=== PATIENT | male | born 1930 | race Caucasian/White ===

== ENCOUNTER 2016-09-13 18:24 | Emergency (ER) | payer MEDICARE, OTHER ==
[~2016-09-13] VITALS: Ht 180.3 cm; Wt 115.3 kg
[~2016-09-13 18:24] MED LIST: ASPCH81X PO; FURO40TA3 PO; GABA300C19 PO; NTRGSL/4 UT; POLY335019 PO; SIMV40TA4 PO; TERA5CAP PO
[2016-09-13 18:43] VITALS: TEMP 36.7; Ht 180.3 cm; Wt 115.3 kg
[2016-09-13] MEDS ORDERED: XYLOCAINE 1%/SOD BICARB 20 ML VIAL INFIL ONE (19:15)
--- NOTE | 2016-09-13 20:15 | EMERGENCY ROOM VISIT NOTE ---
ED Visit Note First contact with patient: 19:07 This Patient was discussed with the physician Wet Primer Powder Blender, Dony Shine PA-C. The pertinent historical and physical exam findings were confirmed. I agree with the studies ordered and with the interpretations of these studies. I agree with the disposition and care plan.
[2016-09-13] MEDS ORDERED: FRS/40 PO (20:37)
[2016-09-13 20:40] VITALS: BP 156/86; PULSE 57; O2SAT 94
--- NOTE | 2016-09-14 00:44 | EMERGENCY ROOM VISIT NOTE ---
History First contact with patient: 19:07 Chief Complaint: LACERATION/CUT (SUT/DERMABOND) Stated Complaint: CUT RIGHT THUMB Nursing Triage Summary: Patient states "I cut my right thumb on a meat smoker." History of Present Illness The patient is a 85 year old male who presents to the Emergency Room with complaints of a laceration to his right thumb. He was cutting potatoes on an electric meat smoker when he cut his finger. He reports significant bleeding from the finger. He denies any pain. Tetanus immunization is up-to-date. The patient is [id number]. Review of Systems 6 system review was performed and was negative except for pertinent positives and negatives as indicated in history of present illness Past Medical/Surgical History Medical Problems: (1) Benign hypertension (2) Eye surgery (3) Myocardial infarction Family History Unremarkable Social History Smoking Status: Former Smoker Alcohol Use: none Marital Status: Housing Status: lives with family Occupation Status: retired Current/Historical Medications Scheduled Aspirin (Aspirin Chewable), 81 MG PO HS Furosemide (Lasix), 40 MG PO DAILY Gabapentin (Neurontin), 300 MG PO HS Nitroglycerin (Nitrostat), 0.4 MG UT PRN Polyethylene Glycol 3350 (Miralax), 17 GM PO HS Simvastatin (Zocor), 40 MG PO QPM Terazosin (Hytrin), 5 MG PO QPM Allergies Coded Allergies: No Known Allergies (Verified , 09/13/16) Physical Exam Vital Signs Date Time Temp Pulse Resp B/P Pulse Ox O2 Delivery O2 Flow Rate FiO2 09/13/16 20:40 57 17 156/86 94 09/13/16 18:43 36.7 91 18 167/79 98 Room Air Pain Rating (0-10): 0 Physical Exam CONSTITUTIONAL: Healthy and well nourished. Alert and oriented X 3 with positive affect. HEENT: Normocephalic, atraumatic. Pupils equal, round and reactive. NECK: Full active range of motion without discomfort. MUSCULOSKELETAL: Examination of the right thumb shows a 3 cm digital pad laceration with mild bleeding. The laceration does not cross PIP joint. Nail plate is not involved. Capillary refill is less than 2 seconds. INTEGUMENTARY: No rash or other significant dermatologic conditions noted. NEUROLOGIC: Right thumb is sensory intact. Medical Decision & Procedures Procedure Laceration repair was performed under digital block anesthesia after receiving verbal consent from the patient. Using buffered 1% lidocaine without epinephrine, good digital block anesthesia was administered. The wound was then peripherally cleansed with iodine, then irrigated with normal saline. The wound was then approximated using 5-0 nylon simple interrupted sutures. Bacitracin dressing was applied. ED Course Patient history and physical exam were performed. Nurse's notes were reviewed. Laceration repair was performed under digital block anesthesia. The patient was provided additional verbal and written wound care instructions. Ice for swelling. Tylenol as needed for pain. The patient refused any prescription analgesics. He was instructed to follow-up with his PCP for suture removal in 12-14 days, sooner with any signs of infection or other concerns. The patient was happy with plan of care, and denied any pain at the conclusion of my exam. The patient was also seen and examined by Dr. Garces, ED attending physician, who agrees with workup and plan of care. Medical Decision Impression Primary Impression: Laceration of right thumb Departure Information Dispostion Home / Self-Care Condition GOOD Forms HOME CARE DOCUMENTATION FORM, IMPORTANT VISIT INFORMATION Patient Instructions My [facility] Additional Instructions Keep wound clean and dry. Do not allow any crusting or dried blood to accumulate on sutures. If this occurs, use a 1:1 solution of hydrogen peroxide/ water on a Q-tip to clean the wound. Use an antibiotic ointment for 3-4 days, then let wound dry. Suture removal in 12-14 days. Return sooner for any signs of infection (increasing redness, swelling, drainage). Ice and elevate for swelling and pain. Tylenol 1000 mg every 6 hrs as needed for pain. Problem Qualifiers Primary Impression: Laceration of right thumb Encounter type: initial encounter Qualified Codes: S61.011A - Laceration without foreign body of right thumb without damage to nail, initial encounter
== END 2016-09-13 20:52 | disposition home or self-care (01) ==
LOC: C.EDB 18:45 → C.EDD 20:52
DX: S61.011A Laceration without foreign body of right thumb without damage to nail, initial encounter (principal); W45.8XXA Other foreign body or object entering through skin, initial encounter; I10 Essential (primary) hypertension; I25.2 Old myocardial infarction; Z87.891 Personal history of nicotine dependence; Z79.82 Long term (current) use of aspirin; Z79.899 Other long term (current) drug therapy

== ENCOUNTER 2019-08-31 10:19 | Inpatient (IN) ==
--- OUTSIDE RECORDS SUMMARY | 2019-08-31 10:21 | External Medical Summary | Continuity of Care Document ---
:1930 Author Name Alexsander Galarza Address Unavailable Unavailable , Care Team Providers Name Role Phone NonMNPG M.D. Unavailable [email or web address] PCP, NO Unavailable Unavailable Problems Active medical history not documented Allergies and Adverse Reactions Allergy history not documented Medications Medications not documented Procedures Procedures not documented Immunizations Immunizations not documented Plan of Treatment Planned Observations Planned Goals not documented Results No Known Results Results not documented
--- OUTSIDE RECORDS SUMMARY | 2019-08-31 10:22 | External Medical Summary | Continuity of Care Document ---
:1930 Author Name Alexsander Galarza Address Unavailable Unavailable , Care Team Providers Name Role Phone NonMNPG M.D. Unavailable [email or web address] PCP, NO Unavailable Unavailable Problems Active medical history not documented Allergies and Adverse Reactions Allergy history not documented Medications Medications not documented Procedures Procedures not documented Immunizations Immunizations not documented Plan of Treatment Planned Observations Planned Goals not documented Results No Known Results Results not documented
[2019-08-31] MEDS ORDERED: METOPROLOL TARTRATE 1 MG/ML VIAL IV STA (10:46)
[2019-08-31] MEDS ORDERED: dilTIAZem HCl 5 MG/ML 5 ML VIAL IV STA (10:46)
[2019-08-31 10:54] LABS: Basophils # (auto) 0.02 K/uL (0-0.2); Basophils % (auto) 0.3 %; Eosinophils # (auto) 0.04 K/uL (0-0.5); Eosinophils % (auto) 0.7 %; Hematocrit (blood only) 43.5 % (42-52); Hemoglobin 13.9 g/dL (14.0-18.0); Immature Granulocytes # (auto) 0.01 K/uL (0.00-0.02); Immature Granulocytes % (auto) 0.2 %; Lymphocytes # (auto) 0.99 K/uL (1.2-3.4); Lymphocytes % (auto) 16.9 %; Mean Corpuscular Hemoglobin 29.6 pg (25-34); Mean Corpuscular Volume 92.8 fL (80-100); Mean Platelet Volume 11.1 fL (7.4-10.4); Monocytes # (auto) 0.48 K/uL (0.11-0.59); Monocytes % (auto) 8.2 %; Neutrophils # (auto) 4.32 K/uL (1.4-6.5); Neutrophils % (auto) 73.7 %; Platelet Count 183 K/uL (130-400); RDW Coefficient of Variation 14.7 % (11.5-14.5); RDW Standard Deviation 49.6 fL (36.4-46.3); Red Blood Count 4.69 M/uL (4.7-6.1); White Blood Count 5.86 K/uL (4.8-10.8)
[2019-08-31] MEDS ORDERED: dilTIAZem HCL 125 MG in DEXTROSE 5% 100 ML IV SCH (11:00)
[2019-08-31] MEDS ORDERED: DILTIAZEM HCL IV ONE (11:00)
--- NOTE | 2019-08-31 11:13 | XRay Report ---
XR chest 1V portable CLINICAL HISTORY: Chest Pain COMPARISON STUDY: Chest radiograph September 24, 2012. FINDINGS: There is no pneumothorax. There may be a trace right pleural effusion. There is pulmonary v ascular congestion without overt pulmonary edema. Mild bibasilar opacities favor atelectasis. Calcifi ed right midlung nodule is noted. Cardiomegaly is unchanged. Mediastinal contours are stable. IMPRESSION: 1. Pulmonary vascular congestion. Suspected trace right pleural effusion. 2. Mild bibasilar opacities which favor atelectasis. ACT 112: Negative or not required by law. Electronically signed by: Urbano Carias M.D. 08/31/2019 11:11 AM
[2019-08-31 11:14] LABS: BUN Creatinine Ratio 15.6 (10-20); Calcium 9.1 mg/dl (8.5-10.1); Est GFR (African American) 57.1; Est GFR (Non-African American) 49.3; Potassium 3.8 mmol/L (3.5-5.1)
[2019-08-31 11:22] LABS: Troponin I 0.112 ng/ml (0-0.045)
[2019-08-31 11:43] LABS: INR 1.1 (0.9-1.1); Partial Thromboplastin Time 26.8 Seconds (21.0-31.0); Prothrombin Time 11.4 Seconds (9.0-12.0)
[2019-08-31] MEDS ORDERED: Heparin IV Low Dose WITH Bolus STA (11:44)
[2019-08-31 11:45] LABS: D Dimer 4650 ug/L FEU (0-500)
[2019-08-31] MEDS ORDERED: OPTIRAY 320 125ml IV PRN (12:00)
[2019-08-31] MEDS ORDERED: Heparin BOLUS **ED Use Only IV STA (12:22)
--- NOTE | 2019-08-31 12:26 | CT Scan Report ---
CT ANGIOGRAPHY OF THE CHEST, PULMONARY EMBOLUS PROTOCOL CLINICAL HISTORY: Shortness of breath. Evaluate for pulmonary embolus. COMPARISON STUDY: Chest CT February 09, 2011. Chest radiograph performed earlier today. TECHNIQUE: Following IV administration of 120 mL of Optiray-320, helical axial images of the chest we re obtained utilizing the pulmonary embolus protocol. Maximal intensity projections and sagittal and coronal reformats were viewed on an independent 3D workstation. IV contrast was administered withou t complication. Automated exposure control was utilized for the study. A dose lowering technique wa s utilized adhering to the principles of ALARA. CT DOSE: 595.76 mGy.cm FINDINGS: No central pulmonary emboli are identified. The remainder of the pulmonary arteries are sprague boptimally assessed given suboptimal opacification and respiratory motion artifact. The heart is mode rately enlarged. There is moderate dilatation of the main pulmonary artery. Dilatation of the ascendi ng aorta, measuring 4.4 cm, is minimally increased since CT of February 19, 2011. There is no pericardial effusion. Small right and trace left pleural effusions are noted. There is suspected mild pulmonary edema. There is evidence for previous granulomas process. Subpleural opacities favor atelectasis. Radha gs are suboptimally assessed given respiratory motion. There is no thoracic lymphadenopathy. No suspi cious osseous lesions are noted. There may be trace perihepatic ascites. IMPRESSION: 1. No central pulmonary emboli. Remainder of pulmonary arteries suboptimally assessed given suboptima l opacification and respiratory motion. If persistent clinical suspicion for pulmonary embolus, a rep eat chest CT might be considered. 2. Small right and trace left pleural fusions with suspected mild pulmonary edema. 3. Moderate cardiomegaly. Moderate aortic valvular and coronary artery calcification. Mild dilatation of the ascending aorta, measuring 4.4 cm. 4. Dilatation of the main pulmonary artery which suggests pulmonary arterial hypertension. ACT 112: Negative or not required by law. Electronically signed by: Urbano Carias M.D. 08/31/2019 12:25 PM
[2019-08-31] MEDS: HEPARIN SODIUM/DEXTROSE 25,000 UNITS/500 ML BAG IV SCH (12:34)
--- NOTE | 2019-08-31 12:34 | History & Physical Report ---
Date of Service August 31, 2019 Assessment & Plan (1) Atrial fibrillation with RVR: Appears to be new onset. Rate improved when seen in ED after receiving metoprolol - Continue to monitor on telemetry - Start metroprolol tartrate 12.5 mg BID until seen by cardiology - may need higher dose - Consult cardiology - Repeat ECHO ordered to follow-up on aortic stenosis - Trend troponin - Low-dose heparin started in ED - will need to determine if ongoing anticoagulation appropriate in view of advanced age, pt lives alone (risk vs. benefit) (2) Aortic stenosis: - Repeat ECHO as discussed (3) ASCVD (arteriosclerotic cardiovascular disease): - Trend troponin - suspect elevation secondary to #1 - Repeat EKG in AM (4) Essential hypertension: Hypotensive initially but BP seems to be improving with rate control - continue to monitor (5) Dyslipidemia: - Continue outpatient simvastatin (6) Neuropathy: - Continue outpatient gabapentin (7) History of urethral stricture: Follows annually with urology - questionable history of BPH as well - Continue outpatient terazosin Pt seen and reviewed with collaborating physician, Dr. Barajas. Plan of care discussed and as outline above. Pt requests to be full code for now. States he has no family to make decisions for him - Friend Zachariah would likely be the one to make decisions if pt is unable. Phyllis Benitez PA-C History of Present Illness Chief Complaint: Shortness of breath Primary Care Provider: Reno Blankenship MD 88 y/o male with PMH of aortic stenosis, AAA s/p endovascular repair, HTN, dyslipidemia, and neuropathy who presents with intermittent [place], worsening over past week. Called his PCP about symptoms this morning who referred pt to ED. Reports ongoing issues with mild dyspnea on exertion but worsening over past week, especially on left side "like it was closed" (referring to the lung). Denies chest pain or pressure. No sensation of heart racing or skipping beats, PND, cough, wheezing, orthopnea, N/V. Orthostatic lightheadedness but chronic. Unclear if worsening over past week. On furosemide for peripheral edema - no worse than usual. No recent history of falls - last fall in 2010. Walks unassisted - no cane or walker. Lives alone. No fevers, chills, sweats. Uses unspecified laxative pills which helps constipation. No hematochezia or hematuria. Denies epistaxis, recent cold symptoms, gingival bleeding. Pt was on Coumadin after PE in 2010 after ankle surgery. This was considered a provoked event. Coumadin continued until 2012 when it was stopped due to concern that risks outweighed benefits, specifically since pt lives alone. Allergies Allergy/AdvReac Type Severity Reaction Status Date / Time No Known Allergies Allergy Verified 08/31/19 11:56 Home Medications Home Medications Medication Instructions Recorded Confirmed Type Laxative Capsules 1 cap PO BID 08/31/19 08/31/19 History aspirin 81 mg PO HS 08/31/19 08/31/19 History furosemide 40 mg PO QAM 08/31/19 08/31/19 History gabapentin 600 mg PO HS 08/31/19 08/31/19 History nitroglycerin [Nitrostat] 0.4 mg SUBLINGUAL UD PRN 08/31/19 08/31/19 History polyethylene glycol 3350 [Miralax] 17 g PO HS 08/31/19 08/31/19 History simvastatin 40 mg PO HS 08/31/19 08/31/19 History terazosin 5 mg PO HS 08/31/19 08/31/19 History Past Med/Surg History Medical History (Updated 08/31/19 @ 16:48 by Chrissie Benitez PA-C) AAA (abdominal aortic aneurysm) Aortic stenosis ASCVD (arteriosclerotic cardiovascular disease) Constipation Dyslipidemia Essential hypertension History of urethral stricture Neuropathy Pulmonary embolism Urethral stricture Surgical History History of AAA (abdominal aortic aneurysm) repair History of ankle surgery Left ankle ORIF 2010 Family History Other Family history non-contributory Social History Preferred Language: Syriac Communication Ability: Effective Core Checker Required: No Beliefs That Will Affect Care: None marital status: / Current Living Situation: Alone Other Information That Helps Us Care for You: No Feels Safe at Home: Yes Safety Concerns: Feels Safe At This Time Smoking Status: Never smoker Hx Alcohol Use: Yes (social) Alcohol type: beer Hx Substance Use: No Review of Systems Review of Systems: All systems reviewed & are unremarkable except as noted in HPI & below Constitutional: no fever, no chills, no sweats and no weakness Ear, Nose, Mouth, Throat: no nasal congestion, no epistaxis, no bleeding gums, no sore throat and no dysphagia Respiratory: + dyspnea on exertion; no cough, no hemoptysis and no wheezing Cardiovascular: + lightheadedness (with standing (chronic)); no chest pain, no paroxysmal nocturnal dyspnea, no palpitations and no syncope Gastrointestinal: no abdominal pain, no nausea, no vomiting, no diarrhea/loose stools and no blood in stools Genitourinary: no dysuria, no urinary frequency and no hematuria Musculoskeletal: no back pain, no neck pain, no myalgia and no muscle weakness Integumentary: no rash, no skin ulcer and no urticaria Neurologic: + numbness (chronic neuropathy) and + dizziness (see HPI); no falls, no seizure-like activity, no headache(s) and no confusion Psychiatric: no depression, no anxiety and no confusion Physical Exam Constitutional: WD/WN, vitals as above Eyes: + anicteric sclerae; no conjunctival abnormality ENMT: external ear and nose normal, oropharynx normal Neck: trachea midline Respiratory: no respiratory distress and does not use accessory muscles Auscultation: + crackles (faint bibasilar); no rhonchi and no wheezes Cardiovascular: Rate/Rhythm: + irregularly irregular Heart Sounds: + murmur (systolic, heard best RUSB) Vessels: no carotid bruit Extremities: + edema Gastrointestinal (Abdomen): Inspection/Auscultation: normal bowel sounds; abdomen not distended Percussion/Palpation: abdomen soft; abdomen nontender Musculoskeletal: Head/Neck/Chest: normocephalic, head atraumatic and neck supple Extremities: no cyanosis and no clubbing Skin: no rashes, warm and dry no jaundice Neurologic: moves all extremities; no focal motor deficits Speech / Cognition: normal speech Psychiatric: A+Ox3, euthymic affect Results & Data Vital Signs (Past 12 Hours) Vital Signs Temp Pulse Resp BP Pulse Ox 08/31/19 12:12 101 H 19 99/72 L 08/31/19 11:30 105 H 15 93/66 L 93 08/31/19 11:07 95 08/31/19 11:06 116 H 19 97/76 L 92 08/31/19 10:52 117 H 17 110/88 08/31/19 10:50 121 H 23 112/77 08/31/19 10:38 95 08/31/19 10:27 36.9 C 121 H 20 141/84 H 93 Laboratory Results Laboratory Results - last 24 hr 08/31/19 08/31/19 08/31/19 10:40 10:40 10:40 WBC 5.86 RBC 4.69 L Hgb 13.9 L Hct 43.5 MCV 92.8 MCH 29.6 MCHC 32.0 RDW Std Deviation 49.6 H RDW Coeff of Leeann 14.7 H Plt Count 183 MPV 11.1 H Immature Gran % (Auto) 0.2 Neut % (Auto) 73.7 Lymph % (Auto) 16.9 [place] % (Auto) 8.2 Eos % (Auto) 0.7 Baso % (Auto) 0.3 Immature Gran # (Auto) 0.01 Neut # (Auto) 4.32 Lymph # (Auto) 0.99 L [place] # (Auto) 0.48 Eos # (Auto) 0.04 Baso # (Auto) 0.02 PT 11.4 INR 1.1 APTT 26.8 PTT Ratio 1.0 D-Dimer 4650 H* Sodium Potassium Chloride Carbon Dioxide Anion Gap BUN Creatinine Est Cr Clr Drug Dosing Est GFR ( Amer) Est GFR (Non-Af Amer) BUN/Creatinine Ratio Glucose Calcium Magnesium Troponin I NT-Pro-B Natriuret Pep Cancelled Lipase 08/31/19 08/31/19 10:40 10:40 WBC RBC Hgb Hct MCV MCH MCHC RDW Std Deviation RDW Coeff of Leeann Plt Count MPV Immature Gran % (Auto) Neut % (Auto) Lymph % (Auto) [place] % (Auto) Eos % (Auto) Baso % (Auto) Immature Gran # (Auto) Neut # (Auto) Lymph # (Auto) [place] # (Auto) Eos # (Auto) Baso # (Auto) PT INR APTT PTT Ratio D-Dimer Sodium 139 Potassium 3.8 Chloride 101 Carbon Dioxide 33 H Anion Gap 5.0 BUN 20 H Creatinine 1.28 Est Cr Clr Drug Dosing 50.0 Est GFR ( Amer) 57.1 Est GFR (Non-Af Amer) 49.3 BUN/Creatinine Ratio 15.6 Glucose 134 H Calcium 9.1 Magnesium 2.5 H Troponin I 0.112 H* NT-Pro-B Natriuret Pep 3472 H Lipase 94 Diagnostic Findings Chest X-ray 08/31/2019 - IMPRESSION: 1. Pulmonary vascular congestion. Suspected trace right pleural effusion. 2. Mild bibasilar opacities which favor atelectasis. CTA Chest 08/31/2019 - IMPRESSION: 1. No central pulmonary emboli. Remainder of pulmonary arteries suboptimally assessed given suboptimal opacification and respiratory motion. If persistent clinical suspicion for pulmonary embolus, a repeat chest CT might be considered. 2. Small right and trace left pleural fusions with suspected mild pulmonary edema. 3. Moderate cardiomegaly. Moderate aortic valvular and coronary artery calcification. Mild dilatation of the ascending aorta, measuring 4.4 cm. 4. Dilatation of the main pulmonary artery which suggests pulmonary arterial hypertension. Medications Administered Heparin Sodium/Dextrose (Heparin Sodium/Dextrose) 25,000 units in 500 mls @ 20 mls/hr IV .Q24H DEEPAK; Protocol Stop: 09/30/19 11:44 Last Admin: 08/31/19 12:34 Dose: 1,000 units/hr, 20 mls/hr Documented by: [id number] Cosigned by: [id number] Ioversol (Optiray 320 125ml) 120 ml IV ONCE PRN PRN Reason: Interaction Checking Stop: 09/04/19 11:59 Last Admin: 08/31/19 12:01 Dose: 120 ml Documented by: [id number] Discontinued Medications Heparin Sodium (Porcine) (Heparin Iv Bolus) 4,000 units IV NOW STA Stop: 08/31/19 12:23 Last Admin: 08/31/19 12:35 Dose: 4,000 units Documented by: [id number] Cosigned by: [id number] Heparin Sodium/Dextrose () 1 ea N/A NOW STA; Protocol Stop: 08/31/19 11:45 Last Admin: 08/31/19 13:22 Dose: 1 ea Documented by: [id number] Diltiazem HCl 125 mg/ Dextrose 125 mls @ 5 mls/hr IV .Q24H DEEPAK; Protocol Stop: 09/30/19 10:59 Last Admin: 08/31/19 13:21 Dose: Not Given Documented by: [id number] Diltiazem HCl 20 mg/ Syringe 4 mls @ 2 mls/min IV ONE ONE Stop: 08/31/19 11:01 Last Admin: 08/31/19 13:21 Dose: Not Given Documented by: [id number] Metoprolol Tartrate (Lopressor) 5 mg IV NOW STA Stop: 08/31/19 10:47 Last Admin: 08/31/19 10:50 Dose: 5 mg Documented by: [id number] Metoprolol Tartrate (Lopressor) 12.5 mg PO BID [facility] Stop: 09/30/19 14:30 Last Admin: 08/31/19 15:26 Dose: 12.5 mg Documented by: [id number] Supervising Physician Co-Signing Physician Notes 88-year-old man with history of aortic stenosis, AAA status post endovascular repair, hypertension, dyslipidemia who comes to the ER with dyspnea on exertion worsening over the past week. History and Physical exam performed by me. Detailed history as documented by Chrissie Benitez PA-C History is notable for dyspnea on exertion, occasional dizziness, numbness in the legs [chronic]. Physical exam is notable for irregularly irregular heart rhythm tachycardia with heart rate in the 100-110s, bilateral pedal edema Troponin was 0.112, BNP [address] PE 1. No central pulmonary emboli. Remainder of pulmonary arteries suboptimally assessed given suboptimal opacification and respiratory motion. If persistent clinical suspicion for pulmonary embolus, a repeat chest CT might be considered. 2. Small right and trace left pleural fusions with suspected mild pulmonary edema. 3. Moderate cardiomegaly. Moderate aortic valvular and coronary artery calcification. Mild dilatation of the ascending aorta, measuring 4.4 cm. 4. Dilatation of the main pulmonary artery which suggests pulmonary arterial hypertension. New onset atrial fibrillation with RVR Has a history of aortic stenosis with dilated LA from previous echo. Rate control with Cardizem drip. Started on metoprolol titrate. Appreciate cardiology consult Trend troponins. Connor Vasc is at least 4. Currently on heparin drip Considering old age, history of AAA, patient lives alone, it is important to have further discussion about benefit versus risk of anticoagulation prior to discharge. Monitor blood pressure and control Continue home gabapentin Other plan as noted above
[2019-08-31] MEDS ORDERED: METOPROLOL TARTRATE 25 MG TAB PO SCH (14:31)
[2019-08-31] MEDS ORDERED: NITROGLYCERIN SL 0.4 MG/TAB TAB SL PRN (14:31)
[2019-08-31] MEDS ORDERED: ACETAMINOPHEN 325 MG TAB PO PRN (14:31)
[2019-08-31] MEDS ORDERED: METOPROLOL TARTRATE 1 MG/ML VIAL IV PRN (14:31)
--- NOTE | 2019-08-31 16:21 | Cardiology Consultation ---
Date of Consultation August 31, 2019 Assessment & Plan (1) Atrial fibrillation with RVR: New onset, to be expected given significant history of aortic stenosis. The pathophysiology and treatment options for which have been discussed with the patient at great length today. We will repeat an echocardiogram, however, given his history of aortic stenosis, mitral regurgitation and left atrial enlargement I believe he is most likely now in permanent atrial fibrillation. We will start with a rate control strategy for which he is already been initiated on heparin and Coumadin will be started as well. Given his advanced age and valvular heart disease I would avoid direct oral anticoagulant. In terms of rate control, he will be started on metoprolol 25 mg p.o. every 6 hours and a Cardizem drip may be added if further rate control is necessary to manage heart rate of less than 120 bpm at rest. (2) Aortic stenosis: Most recent echocardiogram in March, borderline severe at that time. Will repeat now. (3) ASCVD (arteriosclerotic cardiovascular disease): Stable (4) Essential hypertension: Stable History of Present Illness Reason for Consultation: New-onset atrial fibrillation with rapid ventricular response. Requesting Physician: Dr. Barajas Attending Physician: Roxanna Barajas MD History of Present Illness It was my pleasure to see Mr. Lester in consultation today August 31, 2019. He is a very pleasant yet cardiovascularly complex 88-year-old gentleman who follows with both Dr. Deshpande and the valve clinic of her cardiology practice. He presents to [facility] emergency department at the urging of his PCP with complaints of shortness of breath. Patient states that for approximately the last week prior to presentation he was noticing increasing dyspnea with exertion. He states he just felt as though is getting harder and harder breathing today. He specifically denied experiencing any chest pain, palpitations, lightheadedness, dizziness, syncope or peripheral edema. Upon presentation was found to be in atrial fibrillation with rapid ventricular response. He was probably started on IV heparin and his metoprolol was uptitrated. Allergies Allergy/AdvReac Type Severity Reaction Status Date / Time No Known Allergies Allergy Verified 08/31/19 11:56 Home Medications Home Medications Medication Instructions Recorded Confirmed Type Laxative Capsules 1 cap PO BID 08/31/19 08/31/19 History aspirin 81 mg PO HS 08/31/19 08/31/19 History furosemide 40 mg PO QAM 08/31/19 08/31/19 History gabapentin 600 mg PO HS 08/31/19 08/31/19 History nitroglycerin [Nitrostat] 0.4 mg SUBLINGUAL UD PRN 08/31/19 08/31/19 History polyethylene glycol 3350 [Miralax] 17 g PO HS 08/31/19 08/31/19 History simvastatin 40 mg PO HS 08/31/19 08/31/19 History terazosin 5 mg PO HS 08/31/19 08/31/19 History Patient History Medical History AAA (abdominal aortic aneurysm) Aortic stenosis ASCVD (arteriosclerotic cardiovascular disease) Constipation Dyslipidemia Essential hypertension History of urethral stricture Neuropathy Pulmonary embolism Urethral stricture Surgical History History of AAA (abdominal aortic aneurysm) repair History of ankle surgery Left ankle ORIF 2010 Family History Other Family history non-contributory Social History Preferred Language: Kiswahili Communication Ability: Effective [employer] Required: No Beliefs That Will Affect Care: None marital status: / Current Living Situation: Alone Other Information That Helps Us Care for You: No Feels Safe at Home: Yes Safety Concerns: Feels Safe At This Time Smoking Status: Never smoker Hx Alcohol Use: Yes (social) Alcohol type: beer Hx Substance Use: No Review of Systems Review of Systems: All systems reviewed & are unremarkable except as noted in HPI & below Physical Exam Physical Exam: General: Awake, alert and oriented x 3. No acute distress. HEENT: Normocephalic, atraumatic. Pupils equal, round and reactive to light and accommodation. Extraocular muscles are intact. Anicteric sclera. Moist mucous membranes. Neck: No JVD. No bruit. Cardiovascular: Irregularly irregular. 3/6 mid to late systolic ejection murmur, greatest at the right sternal border, second intercostal space with radiation to the bilateral carotids. No rubs. Pulmonary: Clear to auscultation bilaterally. No rales, rhonchi, or wheezing. Abdomen: Bowel sounds x 4, soft. No rebound, guarding or tenderness. No organomegaly. Extremities: No clubbing, cyanosis or edema. +2 pedal pulses bilaterally. Skin: Warm and dry. Results & Data Vital Signs (Past 12 Hours) Vital Signs Temp Pulse Pulse Resp BP BP Pulse Ox 08/31/19 14:31 36.4 C L 116 H 116 H 18 102/70 08/31/19 14:00 101 H 26 H 128/87 92 08/31/19 13:45 101 H 18 102/91 93 08/31/19 13:31 125 H 22 102/91 92 08/31/19 13:00 112 H 15 101/83 92 08/31/19 12:30 104 H 25 H 101/75 93 08/31/19 12:12 101 H 19 99/72 L 08/31/19 11:30 105 H 15 93/66 L 93 08/31/19 11:07 95 08/31/19 11:06 116 H 19 97/76 L 92 08/31/19 10:52 117 H 17 110/88 08/31/19 10:50 121 H 23 112/77 08/31/19 10:38 95 08/31/19 10:27 36.9 C 121 H 20 141/84 H 93 Pulse Ox 08/31/19 14:31 91 08/31/19 14:00 08/31/19 13:45 08/31/19 13:31 08/31/19 13:00 08/31/19 12:30 08/31/19 12:12 08/31/19 11:30 08/31/19 11:07 08/31/19 11:06 08/31/19 10:52 08/31/19 10:50 08/31/19 10:38 08/31/19 10:27 Laboratory Results Laboratory Results - last 24 hr 08/31/19 08/31/19 08/31/19 10:40 10:40 10:40 WBC 5.86 RBC 4.69 L Hgb 13.9 L Hct 43.5 MCV 92.8 MCH 29.6 MCHC 32.0 RDW Std Deviation 49.6 H RDW Coeff of Leeann 14.7 H Plt Count 183 MPV 11.1 H Immature Gran % (Auto) 0.2 Neut % (Auto) 73.7 Lymph % (Auto) 16.9 [place] % (Auto) 8.2 Eos % (Auto) 0.7 Baso % (Auto) 0.3 Immature Gran # (Auto) 0.01 Neut # (Auto) 4.32 Lymph # (Auto) 0.99 L [place] # (Auto) 0.48 Eos # (Auto) 0.04 Baso # (Auto) 0.02 PT 11.4 INR 1.1 APTT 26.8 PTT Ratio 1.0 D-Dimer 4650 H* Sodium Potassium Chloride Carbon Dioxide Anion Gap BUN Creatinine Est Cr Clr Drug Dosing Est GFR ( Amer) Est GFR (Non-Af Amer) BUN/Creatinine Ratio Glucose Calcium Magnesium Troponin I NT-Pro-B Natriuret Pep Cancelled Lipase 08/31/19 08/31/19 10:40 10:40 WBC RBC Hgb Hct MCV MCH MCHC RDW Std Deviation RDW Coeff of Leeann Plt Count MPV Immature Gran % (Auto) Neut % (Auto) Lymph % (Auto) [place] % (Auto) Eos % (Auto) Baso % (Auto) Immature Gran # (Auto) Neut # (Auto) Lymph # (Auto) [place] # (Auto) Eos # (Auto) Baso # (Auto) PT INR APTT PTT Ratio D-Dimer Sodium 139 Potassium 3.8 Chloride 101 Carbon Dioxide 33 H Anion Gap 5.0 BUN 20 H Creatinine 1.28 Est Cr Clr Drug Dosing 50.0 Est GFR ( Amer) 57.1 Est GFR (Non-Af Amer) 49.3 BUN/Creatinine Ratio 15.6 Glucose 134 H Calcium 9.1 Magnesium 2.5 H Troponin I 0.112 H* NT-Pro-B Natriuret Pep 3472 H Lipase 94 Medications Administered Current Inpatient Medications Acetaminophen (Tylenol) 650 mg PO Q4H PRN PRN Reason: Pain or Fever Stop: 09/30/19 14:30 Heparin Sodium/Dextrose (Heparin Sodium/Dextrose) 25,000 units in 500 mls @ 20 mls/hr IV .Q24H DEEPAK; Protocol Stop: 09/30/19 11:44 Last Admin: 08/31/19 12:34 Dose: 1,000 units/hr, 20 mls/hr Documented by: Ioversol (Optiray 320 125ml) 120 ml IV ONCE PRN PRN Reason: Interaction Checking Stop: 09/04/19 11:59 Last Admin: 08/31/19 12:01 Dose: 120 ml Documented by: Metoprolol Tartrate (Lopressor) 2.5 mg IV Q5M PRN PRN Reason: Tachycardia Stop: 09/30/19 14:30 Metoprolol Tartrate (Lopressor) 12.5 mg PO BID DEEPAK Stop: 09/30/19 14:30 Last Admin: 08/31/19 15:26 Dose: 12.5 mg Documented by: Nitroglycerin (Nitrostat) 0.4 mg SL UD PRN PRN Reason: Chest Pain Stop: 09/30/19 14:30
[2019-08-31] MEDS ORDERED: POTASSIUM CHLORIDE 20 MEQ TABCR PO STA (16:28)
[2019-08-31] MEDS: METOPROLOL TARTRATE 25 MG TAB PO SCH (16:43)
[2019-08-31] MEDS: WARFARIN SOD 5 MG TAB PO SCH (17:26)
--- NOTE | 2019-08-31 17:51 | Emergency Department Note ---
Entered by Alie Lindsey acting as a scribe for William He History of Present Illness General Chief complaint: Shortness of Breath/Dyspnea Stated complaint: SOB Time Seen by Provider: 08/31/19 10:33 Source: patient History of Present Illness Onset (ago): day(s) (today) Location: chest Pain Consistency: + other (wosrening) Maximum Pain Intensity: 0 Quality: + other (shortness of breath) Associated symptoms: + denies other symptoms (palpitations) and + other (leg swelling, elevated blood pressure); no chest pain The patient is an 88 year old male who presents to the Emergency Room with complaints of worsening shortness of breath starting today. The patient states that for a long time he has had shortness of breath when he exerts himself, but today it was even just at rest. He notes that he follows with Dr. Deshpande for a bad heart valve. The patient complains of leg swelling and an elevated blood pressure this morning. He notes that he used to take a blood thinner, but stopped when he broke his leg. The patient denies chest pain, palpitations, having to sleep propped up, recent travel, and a history of atrial fibrillation. Home Medications Home Medications Medication Instructions Recorded Confirmed Type Laxative Capsules 1 cap PO BID 08/31/19 08/31/19 History aspirin 81 mg PO HS 08/31/19 08/31/19 History furosemide 40 mg PO QAM 08/31/19 08/31/19 History gabapentin 600 mg PO HS 08/31/19 08/31/19 History nitroglycerin [Nitrostat] 0.4 mg SUBLINGUAL UD PRN 08/31/19 08/31/19 History polyethylene glycol 3350 [Miralax] 17 g PO HS 08/31/19 08/31/19 History simvastatin 40 mg PO HS 08/31/19 08/31/19 History terazosin 5 mg PO 08/31/19 08/31/19 History Allergies Allergy/AdvReac Type Severity Reaction Status Date / Time No Known Allergies Allergy Verified 08/31/19 11:56 Past Med/Surg History Medical History (Updated 08/31/19 @ 16:48 by Chrissie Benitez PA-C) AAA (abdominal aortic aneurysm) Aortic stenosis ASCVD (arteriosclerotic cardiovascular disease) Constipation Dyslipidemia Essential hypertension History of urethral stricture Neuropathy Pulmonary embolism Urethral stricture Surgical History History of AAA (abdominal aortic aneurysm) repair History of ankle surgery Left ankle ORIF 2010 Family History Other Family history non-contributory Social History Preferred Language: Bots[place] Communication Ability: Effective [employer] Attendant Required: No Beliefs That Will Affect Care: None marital status: / Current Living Situation: Alone Other Information That Helps Us Care for You: No Feels Safe at Home: Yes Safety Concerns: Feels Safe At This Time Smoking Status: Never smoker Hx Alcohol Use: Yes (social) Alcohol type: beer Hx Substance Use: No Review of Systems See HPI for pertinent positives & negatives. and A total of 10 systems reviewed and were otherwise negative Physical Exam Vital Signs Vital Signs - 24 hr 08/31/19 10:27 08/31/19 10:38 08/31/19 10:50 Temperature 36.9 C Temperature Source Oral Pulse Rate 121 H 121 H Pulse Rate from SpO2 Sensor Respiratory Rate 20 23 Blood Pressure 141/84 H 112/77 Blood Pressure Mean 103 84 Pulse Oximetry 93 95 Oxygen Delivery Method Room Air Room Air Sepsis Recent Fever Within 48 Hours No Sepsis New/Unexplained Change in Mental Status No Sepsis Action Taken by Nursing No Action Required 08/31/19 10:52 08/31/19 11:06 08/31/19 11:07 Temperature Temperature Source Pulse Rate 117 H 116 H Pulse Rate from SpO2 Sensor 110 H Respiratory Rate 17 19 Blood Pressure 110/88 97/76 L Blood Pressure Mean 98 80 Pulse Oximetry 92 95 Oxygen Delivery Method Room Air Sepsis Recent Fever Within 48 Hours Sepsis New/Unexplained Change in Mental Status Sepsis Action Taken by Nursing 08/31/19 11:30 08/31/19 12:12 08/31/19 12:30 Temperature Temperature Source Pulse Rate 105 H 101 H 104 H Pulse Rate from SpO2 Sensor 102 H 107 H Respiratory Rate 15 19 25 H Blood Pressure 93/66 L 99/72 L 101/75 Blood Pressure Mean 71 74 82 Pulse Oximetry 93 93 Oxygen Delivery Method Sepsis Recent Fever Within 48 Hours Sepsis New/Unexplained Change in Mental Status Sepsis Action Taken by Nursing GENERAL: He is oriented to person, place, and time. He appears well-developed and well-nourished. He does not appear distressed. HENT: Exam performed. - Head: Normocephalic and atraumatic. - Right Ear: External ear normal. No mastoid tenderness. - Left Ear: External ear normal. No mastoid tenderness. - Mouth/Throat: The oropharynx is clear and moist. No trismus in the jaw. No dental abscesses or uvula swelling. No oropharyngeal exudate or tonsillar abscesses. EYES: Conjunctivae and EOM are normal. Pupils are equal, round, and reactive to light. Right eye exhibits no discharge. Left eye exhibits no discharge. No scleral icterus. NECK: Normal range of motion. Neck supple. No JVD present. No spinous process tenderness present. No carotid bruit present. No rigidity. No tracheal deviation and normal range of motion present. No Brudzinski's sign and no Kernig's sign noted. CV: Tachycardic rate, irregular rhythm, normal heart sounds and intact distal pulses. There is no peripheral edema. Palpable radial pulses bue. PULM/CHEST: Effort normal. Crackles at bilateral bases. No respiratory distress. No stridor. He has no wheezes. He has no rales. - Chest Wall: He exhibits no tenderness. ABD: The abdomen is soft. Bowel sounds are normal. He has no distension. No mass is present. There is no tenderness. There is no rebound, no guarding, no Lay's sign and no tenderness at McBurney's point. Rovsig negative. MUSC/SKEL: Normal range of motion. There is no tenderness or deformity. 2+ pitting edema in bilateral lower extremities. LYMPH: No cervical adenopathy. NEURO: He is alert and oriented to person, place, and time. He has normal strength. No cranial nerve deficit or sensory deficit. Coordination and gait normal. GCS eye subscore is 4. GCS verbal subscore is 5. GCS motor subscore is 6. Cerebellar tests wnl. SKIN: Skin is warm and dry. He is not diaphoretic. PSYCH: He has a normal mood and affect. Behavior is normal. Judgment and thought content normal. Course Course 1046: The patient was evaluated in room C11B. A complete history and physical exam was performed. Patient was found to be in A. fib with rapid ventricular rate. Cardizem is currently on a national back order and there is no Cardizem available in the emergency department at this time. Patient denies using any cocaine. The patient was given 5 mg of metoprolol. His rate went to atrial fibr illation of around the 140s to atrial fibrillation from 100-115 bpm. 1238: Vital signs stable status post 5 mg of Metoprolol bolus. His labs show an elevated troponin of 0.112, an elevated Pro BMP 3472, and an elevated d dimer of 4650. His CTA of the chest was negative for a PE. The patient was started on Heparin given his elevated troponin and new onset atrial fibrillation with RVR. I discussed the patient's case with [facility] She will evaluate the patient for further management under Dr. Barajas's service. Administered Medications Heparin Sodium/Dextrose (Heparin Sodium/Dextrose) 25,000 units in 500 mls @ 20 mls/hr IV .Q24H [facility]; Protocol Stop: 09/30/19 11:44 Last Admin: 08/31/19 12:34 Dose: 1,000 units/hr, 20 mls/hr Documented by: [id number] Cosigned by: [id number] Ioversol (Optiray 320 125ml) 120 ml IV ONCE PRN PRN Reason: Interaction Checking Stop: 09/04/19 11:59 Last Admin: 08/31/19 12:01 Dose: 120 ml Documented by: [id number] Metoprolol Tartrate (Lopressor) 25 mg PO Q6 [facility] Stop: 09/30/19 16:29 Last Admin: 08/31/19 16:43 Dose: 25 mg Documented by: [id number] Warfarin Sodium (Coumadin) 5 mg PO DAILY@1600 [facility] Stop: 09/30/19 16:29 Last Admin: 08/31/19 17:26 Dose: 5 mg Documented by: [id number] Discontinued Medications Heparin Sodium (Porcine) (Heparin Iv Bolus) 4,000 units IV NOW STA Stop: 08/31/19 12:23 Last Admin: 08/31/19 12:35 Dose: 4,000 units Documented by: [id number] Cosigned by: [id number] Heparin Sodium/Dextrose () 1 ea N/A NOW STA; Protocol Stop: 08/31/19 11:45 Last Admin: 08/31/19 13:22 Dose: 1 ea Documented by: [id number] Diltiazem HCl 125 mg/ Dextrose 125 mls @ 5 mls/hr IV .Q24H [facility]; Protocol Stop: 09/30/19 10:59 Last Admin: 08/31/19 13:21 Dose: Not Given Documented by: [id number] Diltiazem HCl 20 mg/ Syringe 4 mls @ 2 mls/min IV ONE ONE Stop: 08/31/19 11:01 Last Admin: 08/31/19 13:21 Dose: Not Given Documented by: [id number] Metoprolol Tartrate (Lopressor) 5 mg IV NOW STA Stop: 08/31/19 10:47 Last Admin: 08/31/19 10:50 Dose: 5 mg Documented by: [id number] Metoprolol Tartrate (Lopressor) 12.5 mg PO BID [facility] Stop: 09/30/19 14:30 Last Admin: 08/31/19 15:26 Dose: 12.5 mg Documented by: [id number] Potassium Chloride (Klor-Con M20) 40 meq PO NOW STA Stop: 08/31/19 16:29 Last Admin: 08/31/19 16:38 Dose: 40 meq Documented by: [id number] Critical Care Time Critical Care Time: Yes Total Critical Care Time: 59 I have personally spent 59 minutes of critical care time in the direct management of this patient. This includes bedside care, interpretation of diagnostic studies, and testing, discussion with consultants, patient, and family members, and other required patient management activities. This 59 minutes is in excess of all separately billable procedures. Medical Decision Making Medical Records Attestation: I reviewed the patient's medical records. Home Medications Current Medication List: was personally reviewed by me Laboratory Data Attestation: I reviewed the patient's lab results. Result diagrams: 08/31/19 10:40 08/31/19 10:40 Lab Results 08/31/19 08/31/19 08/31/19 Range/Units 10:40 10:40 10:40 WBC 5.86 (4.8-10.8) K/uL RBC 4.69 L (4.7-6.1) M/uL Hgb 13.9 L (14.0-18.0) g/dL Hct 43.5 (42-52) % MCV 92.8 (80-100) fL MCH 29.6 (25-34) pg MCHC 32.0 (32-36) g/dL RDW Std Deviation 49.6 H (36.4-46.3) fL RDW Coeff of Leeann 14.7 H (11.5-14.5) % Plt Count 183 (130-400) K/uL MPV 11.1 H (7.4-10.4) fL Immature Gran % (Auto) 0.2 % Neut % (Auto) 73.7 % Lymph % (Auto) 16.9 % [place] % (Auto) 8.2 % Eos % (Auto) 0.7 % Baso % (Auto) 0.3 % Immature Gran # (Auto) 0.01 (0.00-0.02) K/uL Neut # (Auto) 4.32 (1.4-6.5) K/uL Lymph # (Auto) 0.99 L (1.2-3.4) K/uL [place] # (Auto) 0.48 (0.11-0.59) K/uL Eos # (Auto) 0.04 (0-0.5) K/uL Baso # (Auto) 0.02 (0-0.2) K/uL PT 11.4 (9.0-12.0) Seconds INR 1.1 (0.9-1.1) APTT 26.8 (21.0-31.0) Seconds PTT Ratio 1.0 D-Dimer 4650 H* (0-500) ug/L FEU Sodium (136-145) mmol/L Potassium (3.5-5.1) mmol/L Chloride (98-107) mmol/L Carbon Dioxide (21-32) mmol/L Anion Gap (3-11) BUN (7-18) mg/dl Creatinine (0.6-1.4) mg/dl Est Cr Clr Drug Dosing ml/min Est GFR ( Amer) Est GFR (Non-Af Amer) BUN/Creatinine Ratio (10-20) Glucose (70-99) mg/dl Calcium (8.5-10.1) mg/dl Magnesium (1.8-2.4) mg/dl Troponin I (0-0.045) ng/ml NT-Pro-B Natriuret Pep Cancelled Lipase (73-393) U/L 08/31/19 08/31/19 Range/Units 10:40 10:40 WBC (4.8-10.8) K/uL RBC (4.7-6.1) M/uL Hgb (14.0-18.0) g/dL Hct (42-52) % MCV (80-100) fL MCH (25-34) pg MCHC (32-36) g/dL RDW Std Deviation (36.4-46.3) fL RDW Coeff of Leeann (11.5-14.5) % Plt Count (130-400) K/uL MPV (7.4-10.4) fL Immature Gran % (Auto) % Neut % (Auto) % Lymph % (Auto) % [place] % (Auto) % Eos % (Auto) % Baso % (Auto) % Immature Gran # (Auto) (0.00-0.02) K/uL Neut # (Auto) (1.4-6.5) K/uL Lymph # (Auto) (1.2-3.4) K/uL [place] # (Auto) (0.11-0.59) K/uL Eos # (Auto) (0-0.5) K/uL Baso # (Auto) (0-0.2) K/uL PT (9.0-12.0) Seconds INR (0.9-1.1) APTT (21.0-31.0) Seconds PTT Ratio D-Dimer (0-500) ug/L FEU Sodium 139 (136-145) mmol/L Potassium 3.8 (3.5-5.1) mmol/L Chloride 101 (98-107) mmol/L Carbon Dioxide 33 H (21-32) mmol/L Anion Gap 5.0 (3-11) BUN 20 H (7-18) mg/dl Creatinine 1.28 (0.6-1.4) mg/dl Est Cr Clr Drug Dosing 50.0 ml/min Est GFR ( Amer) 57.1 Est GFR (Non-Af Amer) 49.3 BUN/Creatinine Ratio 15.6 (10-20) Glucose 134 H (70-99) mg/dl Calcium 9.1 (8.5-10.1) mg/dl Magnesium 2.5 H (1.8-2.4) mg/dl Troponin I 0.112 H* (0-0.045) ng/ml NT-Pro-B Natriuret Pep 3472 H Lipase 94 (73-393) U/L Imaging Data Radiologist's Impression: Radiology results as stated below per my review and the radiologist's interpretation: XR chest 1V portable CLINICAL HISTORY: Chest Pain COMPARISON STUDY: Chest radiograph September 24, 2012. FINDINGS: There is no pneumothorax. There may be a trace right pleural effusion. There is pulmonary vascular congestion without overt pulmonary edema. Mild bibasilar opacities favor atelectasis. Calcified right midlung nodule is noted. Cardiomegaly is unchanged. Mediastinal contours are stable. IMPRESSION: 1. Pulmonary vascular congestion. Suspected trace right pleural effusion. 2. Mild bibasilar opacities which favor atelectasis. ACT 112: Negative or not required by law. Electronically signed by: Urbano Carias M.D. 08/31/2019 11:[address] ANGIOGRAPHY OF THE CHEST, PULMONARY EMBOLUS PROTOCOL CLINICAL HISTORY: Shortness of breath. Evaluate for pulmonary embolus. COMPARISON STUDY: Chest CT February 09, 2011. Chest radiograph performed earlier today. TECHNIQUE: Following IV administration of 120 mL of Optiray-320, helical axial images of the chest were obtained utilizing the pulmonary embolus protocol. Maximal intensity projections and sagittal and coronal reformats were viewed on an independent 3D workstation. IV contrast was administered without complication. Automated exposure control was utilized for the study. A dose lowering technique was utilized adhering to the principles of ALARA. CT DOSE: 595.76 mGy.cm FINDINGS: No central pulmonary emboli are identified. The remainder of the pulmonary arteries are suboptimally assessed given suboptimal opacification and respiratory motion artifact. The heart is moderately enlarged. There is moderate dilatation of the main pulmonary artery. Dilatation of the ascending aorta, measuring 4.4 cm, is minimally increased since CT of February 19, 2011. There is no pericardial effusion. Small right and trace left pleural effusions are noted. There is suspected mild pulmonary edema. There is evidence for previous g ranulomas process. Subpleural opacities favor atelectasis. Lungs are suboptimally assessed given respiratory motion. There is no thoracic lymphadenopathy. No suspicious osseous lesions are noted. There may be trace perihepatic ascites. IMPRESSION: 1. No central pulmonary emboli. Remainder of pulmonary arteries suboptimally assessed given suboptimal opacification and respiratory motion. If persistent clinical suspicion for pulmonary embolus, a repeat chest CT might be considered. 2. Small right and trace left pleural fusions with suspected mild pulmonary edema. 3. Moderate cardiomegaly. Moderate aortic valvular and coronary artery calcification. Mild dilatation of the ascending aorta, measuring 4.4 cm. 4. Dilatation of the main pulmonary artery which suggests pulmonary arterial hypertension. ACT 112: Negative or not required by law. Electronically signed by: Urbano Carias M.D. 08/31/2019 12:25 PM ECG Data Attestation: I personally reviewed and interpreted this ECG as follows: Indication: + SOB/dyspnea Rate (beats per minute): 128 Rhythm: + atrial fibrillation ECG Intervals/blocks: + Normal QRS ECG ST segments: + T-wave inversions (aVL); no ST depression and no ST elevation ECG Findings: + Other (QT-c 502) Additional Comments: REPEAT EKG: Status post Metoprolol bolus. Atrial fibrillation at a rate of 97. QRS is within normal limits. QT-c 492. No ST elevation or depression. TWI in lead aVL. Blood Pressure Blood Pressure Findings: Normal blood pressure Blood Pressure Disposition: did not require urgent referral MDM Narrative 1046: The patient was evaluated in room C11B. A complete history and physical exam was performed. Patient was found to be in A. fib with rapid ventricular rate. Cardizem is currently on a national back order and there is no Cardizem available in the emergency department at this time. Patient denies using any cocaine. The patient was given 5 mg of metoprolol. His rate went to atrial fibrillation of around the 140s to atrial fibrillation from 100-115 bpm. 1238: Vital signs stable status post 5 mg of Metoprolol bolus. His labs show an elevated troponin of 0.112, an elevated Pro BMP 3472, and an elevated d dimer of 4650. His CTA of the chest was negative for a PE. The patient was started on Heparin given his elevated troponin and new onset atrial fibrillation with RVR. I discussed the patient's case [facility] She will evaluate the patient for further management under Dr. Barajas's service. Impression & Plan Atrial fibrillation with RVR Discharge Plan Visit Data *Final* Discharge Date/Time: 08/31/19 13:45 Chief Complaint: Shortness of Breath/Dyspnea Stated Complaint: SOB ED Provider: William He Discharge Problem: Atrial fibrillation with RVR Patient Disposition: Being Evaluated by Hospitalist Discharge Instructions Interventions: ED Discharge Assessment Last Done: 08/31/19 13:45 The scribe's documentation has been prepared under my direction and personally reviewed by me in its entirety. I confirm that the note above accurately reflects all work, treatment, procedures, and medical decision making performed by me.
[2019-08-31 19:31] LABS: Partial Thromboplastin Ratio 1.3; Partial Thromboplastin Time 34.8 Seconds (21.0-31.0)
[2019-08-31] MEDS ORDERED: HEPARIN IV BOLUS 4,500 UNITS in SYRINGE 0 ML IV ONE (20:00)
[2019-08-31] MEDS: GABAPENTIN 300 MG CAP PO SCH (20:29)
[2019-08-31] MEDS: TERAZOSIN HCL 5 MG CAP PO SCH (20:29)
[2019-08-31] MEDS: SIMVASTATIN 40 MG TAB PO SCH (20:29)
[2019-09-01] MEDS: METOPROLOL TARTRATE 25 MG TAB PO SCH ×5 (00:14→23:55)
[2019-09-01 02:06] LABS: Basophils # (auto) 0.02 K/uL (0-0.2); Basophils % (auto) 0.4 %; Eosinophils # (auto) 0.09 K/uL (0-0.5); Eosinophils % (auto) 1.7 %; Hematocrit (blood only) 40.2 % (42-52); Hemoglobin 12.6 g/dL (14.0-18.0); Immature Granulocytes # (auto) 0.01 K/uL (0.00-0.02); Immature Granulocytes % (auto) 0.2 %; Lymphocytes # (auto) 1.75 K/uL (1.2-3.4); Lymphocytes % (auto) 33.2 %; Mean Corpuscular Hgb Conc 31.3 g/dL (32-36); Mean Corpuscular Volume 92.6 fL (80-100); Mean Platelet Volume 11.4 fL (7.4-10.4); Monocytes % (auto) 9.5 %; Platelet Count 171 K/uL (130-400); RDW Coefficient of Variation 14.6 % (11.5-14.5); RDW Standard Deviation 49.7 fL (36.4-46.3); Red Blood Count 4.34 M/uL (4.7-6.1); White Blood Count 5.27 K/uL (4.8-10.8)
[2019-09-01 02:27] LABS: BUN Creatinine Ratio 15.8 (10-20); Calcium 8.8 mg/dl (8.5-10.1); Creatinine Clr Calc Pharmacy 46.7 ml/min; Est GFR (African American) 52.6; Est GFR (Non-African American) 45.4; Magnesium 2.5 mg/dl (1.8-2.4); Potassium 4.1 mmol/L (3.5-5.1)
[2019-09-01 02:35] LABS: INR 1.2 (0.9-1.1); Partial Thromboplastin Ratio 1.8; Prothrombin Time 11.8 Seconds (9.0-12.0)
[2019-09-01 02:36] LABS: Partial Thromboplastin Time 49.8 Seconds (21.0-31.0)
[2019-09-01 02:37] LABS: Thyroid Stimulating Hormone 2.98 uIu/ml (0.300-4.500)
[2019-09-01] MEDS: HEPARIN SODIUM/DEXTROSE 25,000 UNITS/500 ML BAG IV SCH (07:43)
[2019-09-01] MEDS: FUROSEMIDE 40 MG TAB PO SCH (08:55)
[2019-09-01] MEDS ORDERED: FUROSEMIDE 40 MG in SYRINGE 0 ML IV ONE (15:00)
[2019-09-01] MEDS: WARFARIN SOD 5 MG TAB PO SCH (16:00)
--- NOTE | 2019-09-01 17:07 | Cardiology Progress Note ---
Date of Service September 01, 2019 Assessment & Plan (1) Atrial fibrillation with RVR: New onset, to be expected given significant history of aortic stenosis. The pathophysiology and treatment options for which have been discussed with the patient at great length today. We will repeat an echocardiogram, however, given his history of aortic stenosis, mitral regurgitation and left atrial enlargement I believe he is most likely now in permanent atrial fibrillation. We will start with a rate control strategy for which he is already been initiated on heparin and Coumadin will be started as well. Given his advanced age and valvular heart disease I would avoid direct oral anticoagulant. In terms of rate control, he has responded well to metoprolol tartrate and will change to metoprolol succinate 50 mg p.o. twice daily in the a.m. (2) Aortic stenosis: Unfortunately, echocardiogram reveals significant reduction of LV systolic function. In current clinical context believe this represents progression of his aortic stenosis and he is now in a low flow/low gradient state. The patient has been following with the valve clinic and I will arrange closer follow-up for TAVR evaluation as an outpatient. Again, with this decline in his LV systolic function his beta-danny will be changed to evidence-based metoprolol succinate. We will now try to avoid calcium channel blockers as well. Does examine is somewhat volume overloaded at this time which is not unexpected given decline of LV systolic function. We will give a one-time dose of IV Lasix now and follow his volume status clinically. May require more frequent Lasix dosing as an outpatient (3) ASCVD (arteriosclerotic cardiovascular disease): Stable (4) Essential hypertension: Stable Subjective Patient seen and examined out of bed in chair. States that breathing is a little easier today. Overall feeling okay and denies chest pain, palpitations, lightheadedness, dizziness or syncope. Telemetry reviewed: Atrial fibrillation rates controlled in 80s to 90s. Review of Systems Review of Systems: All systems reviewed & are unremarkable except as noted in HPI & below Physical Exam Physical Exam: General: Awake, alert and oriented x 3. No acute distress. HEENT: Normocephalic, atraumatic. Pupils equal, round and reactive to light and accommodation. Extraocular muscles are intact. Anicteric sclera. Moist mucous membranes. Neck: No JVD. No bruit. Cardiovascular: irregularly irregular, harsh 4 out of 6 mid-to-late systolic ejection murmur greatest in the right sternal border unable appreciate S2 Pulmonary: Somewhat decreased air movement in the bilateral bases Abdomen: Bowel sounds x 4, soft. No rebound, guarding or tenderness. No organomegaly. Extremities: No clubbing, cyanosis or edema. +2 pedal pulses bilaterally. Skin: Warm and dry. Results & Data Vital Signs (Past 12 Hours) Vital Signs Temp Pulse Pulse Pulse Resp BP Pulse Ox 09/01/19 16:21 36.3 C L 94 H 16 96/66 L 97 09/01/19 16:00 86 09/01/19 11:00 36.3 C L 105 H 20 106/72 97 09/01/19 08:10 37.1 C 94 H 16 99/68 L 96 09/01/19 08:07 100 H 09/01/19 06:26 77 98/63 L
--- NOTE | 2019-09-01 17:32 | Electrocardiogram Report ---
Test Reason : Blood Pressure : / mmHG Vent. Rate : 128 BPM Atrial Rate : 153 BPM P-R Int : 000 ms QRS Dur : 112 ms QT Int : 344 ms P-R-T Axes : 000 -26 115 degrees QTc Int : 502 ms Atrial fibrillation with rapid ventricular response Abnormal ECG When compared with ECG of 25-SEP-2012 07:06, Atrial fibrillation has replaced Sinus rhythm Vent. rate has increased BY 75 BPM Questionable change in initial forces of Septal leads Confirmed by Glen Rizzo ([id number]) on 09/01/2019 5:32:14 PM Referred By: Confirmed By:Fox Rizzo
--- NOTE | 2019-09-01 17:34 | Electrocardiogram Report ---
Test Reason : Blood Pressure : / mmHG Vent. Rate : 097 BPM Atrial Rate : 214 BPM P-R Int : 000 ms QRS Dur : 118 ms QT Int : 388 ms P-R-T Axes : 000 -23 098 degrees QTc Int : 492 ms Atrial fibrillation with premature ventricular or aberrantly conducted complexes Non-specific intra-ventricular conduction delay Prolonged QT Abnormal ECG When compared with ECG of 31-AUG-2019 10:38, (unconfirmed) No significant change was found Confirmed by Glen Rizzo ([id number] on 09/01/2019 5:34:35 PM Referred By: ED Confirmed By:Fox Rizzo
--- NOTE | 2019-09-01 17:49 | Hospitalist Progress Note ---
Date of Service September 01, 2019 Assessment & Plan (1) Atrial fibrillation with RVR: New onset, thought 2/2 valvulopathy. Heparin drip continues with transition to warfarin. Cont beta danny. (2) Aortic stenosis: TAVR being considered with new reduction in EF. (3) ASCVD (arteriosclerotic cardiovascular disease): likely demand ischemia with structural heart disease and increased demand from tachycardia. (4) Dyslipidemia: statin (5) Neuropathy: - Continue outpatient gabapentin (6) Hypotension: Some initial improvement with rate control. Cont Lopressor (7) DVT prophylaxis: Heparin drip/warfarin Full Code Dispo-uncertain at this time. Per Cardiology recommendations. America Oakes DO [facility] Hospitalist Subjective Elderly man in NAD today reporting an improvement in his breathing since admission. He is using supplemental oxygen which he is not on at home. He denies any chest pain, is tolerating PO and ROS is otherwise negative. Review of Systems Review of Systems: All systems reviewed & are unremarkable except as noted in HPI & below Physical Exam Physical Exam: CONSTITUTIONAL: WNWD, vitals as above, generally well- appearing EYES: normal conjunctivae, no scleral icterus ENT: MMM, oxygen in place RESPIRATORY: clear to auscultation bilaterally, no crackles, rales or wheezes, normal respiratory effort CARDIOVASCULAR: irregular rate and rhythm, S1 and 2 heard without murmurs, gall ops or rubs, no JVD, no peripheral edema GASTROINTESTINAL: soft, nontender, nondistended MUSCULOSKELETAL: strength 5/5 throughout, head is normocephalic and atraumatic SKIN: warm and dry NEUROLOGIC: CN 2-12 grossly intact, normal cognition, normal speech PSYCHIATRIC: alert cooperative and oriented to person, place and time. Results & Data Vital Signs (Past 12 Hours) Vital Signs Temp Pulse Pulse Pulse Resp BP Pulse Ox 09/01/19 16:21 36.3 C L 94 H 16 96/66 L 97 09/01/19 16:00 86 09/01/19 11:00 36.3 C L 105 H 20 106/72 97 09/01/19 08:10 37.1 C 94 H 16 99/68 L 96 09/01/19 08:07 100 H 09/01/19 06:26 77 98/63 L Laboratory Results Short CBC 09/01/19 Range/Units 01:55 WBC 5.27 (4.8-10.8) K/uL Hgb 12.6 L (14.0-18.0) g/dL Hct 40.2 L (42-52) % Plt Count 171 (130-400) K/uL BMP 09/01/19 01:55 Sodium 138 Potassium 4.1 Chloride 102 Carbon Dioxide 32 BUN 22 H Creatinine 1.37 Glucose 104 H Calcium 8.8 Cardiac Enzymes 08/31/19 08/31/19 Range/Units 17:03 22:50 Troponin I 0.128 H* 0.119 H* (0-0.045) ng/ml Medications Administered Current Inpatient Medications Acetaminophen (Tylenol) 650 mg PO Q4H PRN PRN Reason: Pain or Fever Stop: 09/30/19 14:30 Furosemide (Lasix) 40 mg PO QAM [facility] Stop: 10/01/19 08:59 Last Admin: 09/01/19 08:55 Dose: 40 mg Documented by: Gabapentin (Neurontin) 600 mg PO HS [facility] Stop: 09/30/19 20:59 Last Admin: 08/31/19 20:29 Dose: 600 mg Documented by: Heparin Sodium/Dextrose (Heparin Sodium/Dextrose) 25,000 units in 500 mls @ 24 mls/hr IV .[id number] [facility]; Protocol Stop: 09/30/19 11:44 Last Admin: 09/01/19 07:43 Dose: 1,200 units/hr, 24 mls/hr Documented by: Ioversol (Optiray 320 125ml) 120 ml IV ONCE PRN PRN Reason: Interaction Checking Stop: 09/04/19 11:59 Last Admin: 08/31/19 12:01 Dose: 120 ml Documented by: Metoprolol Tartrate (Lopressor) 2.5 mg IV Q5M PRN PRN Reason: Tachycardia Stop: 09/30/19 14:30 Metoprolol Tartrate (Lopressor) 25 mg PO Q6 [facility] Stop: 09/30/19 16:29 Last Admin: 09/01/19 12:05 Dose: 25 mg Documented by: Nitroglycerin (Nitrostat) 0.4 mg SL UD PRN PRN Reason: Chest Pain Stop: 09/30/19 14:30 Simvastatin (Zocor) 40 mg PO HS [facility] Stop: 09/30/19 20:59 Last Admin: 08/31/19 20:29 Dose: 40 mg Documented by: Terazosin HCl (Hytrin) 5 mg PO HS [facility] Stop: 09/30/19 20:59 Last Admin: 08/31/19 20:29 Dose: 5 mg Documented by: Warfarin Sodium (Coumadin) 5 mg PO DAILY@1600 [facility] Stop: 09/30/19 16:29 Last Admin: 09/01/19 16:00 Dose: 5 mg Documented by:
--- NOTE | 2019-09-01 17:50 | Electrocardiogram Report ---
Test Reason : Blood Pressure : / mmHG Vent. Rate : 101 BPM Atrial Rate : 000 BPM P-R Int : 000 ms QRS Dur : 116 ms QT Int : 378 ms P-R-T Axes : 000 -21 122 degrees QTc Int : 490 ms Atrial fibrillation with rapid ventricular response with premature ventricular or aberrantly conducte d complexes Minimal voltage criteria for LVH, may be normal variant Nonspecific T wave abnormality Abnormal ECG When compared with ECG of 31-AUG-2019 11:02, (unconfirmed) No significant change was found Confirmed by Glen Rizzo ([id number]) on 09/01/2019 5:50:13 PM Referred By: Reno Blankenship Confirmed By:Fox Rizzo
[2019-09-01] MEDS: SIMVASTATIN 40 MG TAB PO SCH (20:17)
[2019-09-01] MEDS: TERAZOSIN HCL 5 MG CAP PO SCH (20:17)
[2019-09-01] MEDS: GABAPENTIN 300 MG CAP PO SCH (20:18)
[2019-09-02] MEDS: HEPARIN SODIUM/DEXTROSE 25,000 UNITS/500 ML BAG IV SCH ×2 (02:58→21:03)
[2019-09-02] MEDS: METOPROLOL TARTRATE 25 MG TAB PO SCH (05:13)
[2019-09-02] MEDS ORDERED: ALBUMIN 25% 50 ML IV ONE (05:34)
[2019-09-02] MEDS ORDERED: POTASSIUM CHLORIDE 20 MEQ TABCR PO STA (05:36)
[2019-09-02] MEDS ORDERED: DIGOXIN 250 MCG in SYRINGE 9 ML IV STA (06:02)
[2019-09-02 06:29] LABS: Basophils # (auto) 0.01 K/uL (0-0.2); Basophils % (auto) 0.2 %; Eosinophils % (auto) 1.8 %; Hematocrit (blood only) 39.7 % (42-52); Hemoglobin 12.5 g/dL (14.0-18.0); Immature Granulocytes # (auto) 0.01 K/uL (0.00-0.02); Immature Granulocytes % (auto) 0.2 %; Lymphocytes # (auto) 0.88 K/uL (1.2-3.4); Lymphocytes % (auto) 16.1 %; Mean Corpuscular Hemoglobin 29.5 pg (25-34); Mean Corpuscular Hgb Conc 31.5 g/dL (32-36); Mean Corpuscular Volume 93.6 fL (80-100); Mean Platelet Volume 11.4 fL (7.4-10.4); Monocytes # (auto) 0.46 K/uL (0.11-0.59); Monocytes % (auto) 8.4 %; Neutrophils # (auto) 3.99 K/uL (1.4-6.5); Neutrophils % (auto) 73.3 %; Platelet Count 160 K/uL (130-400); RDW Coefficient of Variation 14.6 % (11.5-14.5); RDW Standard Deviation 49.7 fL (36.4-46.3); Red Blood Count 4.24 M/uL (4.7-6.1); White Blood Count 5.45 K/uL (4.8-10.8)
[2019-09-02 06:37] LABS: INR 1.1 (0.9-1.1); Prothrombin Time 11.4 Seconds (9.0-12.0)
[2019-09-02 07:11] LABS: BUN Creatinine Ratio 15.9 (10-20); Calcium 8.9 mg/dl (8.5-10.1); Creatinine Clr Calc Pharmacy 47.2 ml/min; Est GFR (African American) 53.6; Est GFR (Non-African American) 46.2; Magnesium 2.3 mg/dl (1.8-2.4); Potassium 4.1 mmol/L (3.5-5.1)
[2019-09-02] MEDS: FUROSEMIDE 40 MG TAB PO SCH (08:28)
[2019-09-02 09:26] LABS: Partial Thromboplastin Ratio 1.4; Partial Thromboplastin Time 36.7 Seconds (21.0-31.0)
[2019-09-02] MEDS ORDERED: HEPARIN IV BOLUS 4,500 UNITS in SYRINGE 0 ML IV ONE (09:45)
[2019-09-02] MEDS: METOPROLOL SUCC 50MG EXT REL TAB PO SCH ×2 (13:13→21:02)
--- NOTE | 2019-09-02 13:20 | Cardiology Progress Note ---
Date of Service September 02, 2019 Assessment & Plan (1) Atrial fibrillation with RVR: New onset, to be expected given significant history of aortic stenosis. The pathophysiology and treatment options for which have been discussed with the patient at great lengths We will start with a rate control strategy for which he is already been initiated on heparin and Coumadin will be started as well. Given his advanced age and valvular heart disease I would avoid direct oral anticoagulant. I have changed him to metoprolol succinate 50 mg twice daily today. He did receive a dose of digoxin overnight for rapid ventricular response which I agree with. Consideration could be given to daily digoxin based on rate response to metoprolol up titration. We will continue to monitor on telemetry overnight tonight (2) Aortic stenosis: Unfortunately, echocardiogram reveals significant reduction of LV systolic function. In current clinical context believe this represents progression of his aortic stenosis and he is now in a low flow/low gradient state. The patient has been following with the valve clinic and I have notified them and they are ready taking steps to proceed with TAVR evaluation. Again, with this decline in his LV systolic function his beta-danny will be changed to evidence-based metoprolol succinate. We will now try to avoid calcium channel blockers as well. Does not examine his volume overloaded today. Blood pressure a little on the low side today we will hold off on further diuresis. Agree with continue daily p.o. Lasix to maintain volume status. Additional PRN p.m. dose may be used as needed as well. (3) ASCVD (arteriosclerotic cardiovascular disease): Stable (4) Essential hypertension: Stable Subjective Patient seen and examined, out of bed in chair. States he feels well today. Notes that his breathing has improved and he feels back to baseline. Denies any complaints of chest pain, shortness of breath, palpitations, lightheadedness, dizziness or syncope. Telemetry reviewed: Atrial fibrillation with variable rate response 90s to 110's. Review of Systems Review of Systems: All systems reviewed & are unremarkable except as noted in HPI & below Physical Exam Physical Exam: General: Awake, alert and oriented x 3. No acute distress. HEENT: Normocephalic, atraumatic. Pupils equal, round and reactive to light and accommodation. Extraocular muscles are intact. Anicteric sclera. Moist mucous membranes. Neck: No JVD. No bruit. Cardiovascular: irregularly irregular, unable to appreciate murmur, rub or gallop. Pulmonary: Clear to auscultation bilaterally. No rales, rhonchi, or wheezing. Abdomen: Bowel sounds x 4, soft. No rebound, guarding or tenderness. No organomegaly. Extremities: No clubbing, cyanosis or edema. +2 pedal pulses bilaterally. Skin: Warm and dry. Results & Data Vital Signs (Past 12 Hours) Vital Signs Temp Pulse Pulse Resp BP Pulse Ox 09/02/19 11:13 36.7 C 103 H 20 92/60 L 97 09/02/19 07:06 36.5 C 122 H 20 96/58 L 95 09/02/19 06:19 114 H 09/02/19 05:13 36.6 C 125 H 18 92/55 L 98
[2019-09-02] MEDS: WARFARIN SOD 5 MG TAB PO SCH (15:58)
[2019-09-02 16:38] LABS: Partial Thromboplastin Ratio 1.9
[2019-09-02 17:29] LABS: Partial Thromboplastin Time 51.8 Seconds (21.0-31.0)
--- NOTE | 2019-09-02 18:13 | Hospitalist Progress Note ---
Date of Service September 02, 2019 Assessment & Plan (1) Atrial fibrillation with RVR: New onset, thought 2/2 valvulopathy. Heparin drip continues with transition to warfarin. Cont beta danny. Was tachy overnight but improved on the Toprol XL 50mg BID. (2) Aortic stenosis: TAVR workup as outpatient with new reduction in EF. (3) ASCVD (arteriosclerotic cardiovascular disease): elevated trop is likely demand ischemia with structural heart disease and increased demand from tachycardia. (4) Dyslipidemia: statin (5) Neuropathy: - Continue outpatient gabapentin (6) Hypotension: resolved with improvement in heart rate. (7) DVT prophylaxis: Heparin drip/warfarin Full Code Dispo-uncertain at this time. Per Cardiology recommendations. America Oakes DO [facility] Hospitalist Subjective Pt reports feeling well today. He doesn't ambulate much despite encouragement to do so. He denies any swelling or shortness of breath, however, he is wearing supplemental oxygen and cannot be titrated off this per nursing. Denies cough, tolerating PO. Review of Systems Review of Systems: All systems reviewed & are unremarkable except as noted in Subjective Physical Exam Physical Exam: CONSTITUTIONAL: WNWD, vitals as above, generally well- appearing EYES: normal conjunctivae, no scleral icterus ENT: MMM, oxygen in place RESPIRATORY: clear to auscultation bilaterally, no crackles, rales or wheezes, normal respiratory effort CARDIOVASCULAR: irregular rate and rhythm, S1 and 2 heard without murmurs, gallops or rubs, no JVD, no peripheral edema GASTROINTESTINAL: soft, nontender, nondistended MUSCULOSKELETAL: strength 5/5 throughout, head is normocephalic and atraumatic SKIN: warm and dry NEUROLOGIC: CN 2-12 grossly intact, normal cognition, normal speech PSYCHIATRIC: alert cooperative and oriented to person, place and time. Results & Data ([facility]) Vital Signs (Past 12 Hours) Vital Signs Temp Pulse Pulse Resp BP Pulse Ox 09/02/19 15:54 36.4 C L 122 H 18 112/74 96 09/02/19 11:13 36.7 C 103 H 20 92/60 L 97 09/02/19 07:06 36.5 C 122 H 20 96/58 L 95 09/02/19 06:19 114 H Laboratory Results Short CBC 09/02/19 Range/Units 05:56 WBC 5.45 (4.8-10.8) K/uL Hgb 12.5 L (14.0-18.0) g/dL Hct 39.7 L (42-52) % Plt Count 160 (130-400) K/uL [facility] 09/02/19 05:56 Sodium 137 Potassium 4.1 Chloride 99 Carbon Dioxide 35 H BUN 21 H Creatinine 1.35 Glucose 117 H Calcium 8.9 Medications Administered Current Inpatient Medications Acetaminophen (Tylenol) 650 mg PO Q4H PRN PRN Reason: Pain or Fever Stop: 09/30/19 14:30 Furosemide (Lasix) 40 mg PO [facility] Stop: 10/01/19 08:59 Last Admin: 09/02/19 08:28 Dose: 40 mg Documented by: Gabapentin (Neurontin) 600 mg PO [facility] Stop: 09/30/19 20:59 Last Admin: 09/01/19 20:18 Dose: 600 mg Documented by: Heparin Sodium/Dextrose (Heparin Sodium/Dextrose) 25,000 units in 500 mls @ 28 mls/hr IV .[id number] [facility]; Protocol Stop: 09/30/19 11:44 Last Titration: 09/02/19 10:05 Dose: 1,400 units/hr, 28 mls/hr Documented by: Ioversol (Optiray 320 125ml) 120 ml IV ONCE PRN PRN Reason: Interaction Checking Stop: 09/04/19 11:59 Last Admin: 08/31/19 12:01 Dose: 120 ml Documented by: Metoprolol Succinate (Toprol Xl) 50 mg PO BID [facility] Stop: 10/02/19 11:54 Last Admin: 09/02/19 13:13 Dose: 50 mg Documented by: Metoprolol Tartrate (Lopressor) 2.5 mg IV Q5M PRN PRN Reason: Tachycardia Stop: 09/30/19 14:30 Nitroglycerin (Nitrostat) 0.4 mg SL UD PRN PRN Reason: Chest Pain Stop: 09/30/19 14:30 Simvastatin (Zocor) 40 mg PO [facility] Stop: 09/30/19 20:59 Last Admin: 09/01/19 20:17 Dose: 40 mg Documented by: Terazosin HCl (Hytrin) 5 mg PO [facility] Stop: 09/30/19 20:59 Last Admin: 09/01/19 20:17 Dose: 5 mg Documented by: Warfarin Sodium (Coumadin) 5 mg PO DAILY@1600 [facility] Stop: 09/30/19 16:29 Last Admin: 09/02/19 15:58 Dose: 5 mg Documented by:
[2019-09-02] MEDS: SIMVASTATIN 40 MG TAB PO SCH (21:02)
[2019-09-02] MEDS: GABAPENTIN 300 MG CAP PO SCH (21:02)
[2019-09-02] MEDS: DOCUSATE SODIUM/SENNA 50/8.6MG TAB PO SCH (21:02)
[2019-09-02] MEDS: TERAZOSIN HCL 5 MG CAP PO SCH (21:02)
[2019-09-03 06:46] LABS: INR 1.2 (0.9-1.1); Partial Thromboplastin Ratio 1.6; Partial Thromboplastin Time 42.6 Seconds (21.0-31.0); Prothrombin Time 12.2 Seconds (9.0-12.0)
[2019-09-03] MEDS: HEPARIN SODIUM/DEXTROSE 25,000 UNITS/500 ML BAG IV SCH (07:27)
[2019-09-03] MEDS: FUROSEMIDE 40 MG TAB PO SCH (07:40)
[2019-09-03] MEDS: METOPROLOL SUCC 50MG EXT REL TAB PO SCH ×2 (07:40→19:42)
[2019-09-03] MEDS: DOCUSATE SODIUM/SENNA 50/8.6MG TAB PO SCH (07:41)
[2019-09-03] MEDS: POLYETHYLENE (MIRALAX) 17 GM PACK PO SCH (07:41)
--- NOTE | 2019-09-03 12:00 | Cardiology Progress Note ---
Date of Service September 03, 2019 Assessment & Plan (1) Atrial fibrillation with RVR: New onset, to be expected given significant history of aortic stenosis. The pathophysiology and treatment options for which have been discussed with the patient at great lengths He has responded nicely to up titration of his metoprolol succinate and is now rate controlled. We will continue current dose of metoprolol succinate. Continue heparin bridge with a goal INR of 2-3. I would have no contraindica tions for discharge with a Lovenox bridge from a cardiac standpoint. Again given his age and valvular pathology I do not believe he is a candidate for DOAC (2) Aortic stenosis: Unfortunately, echocardiogram reveals significant reduction of LV systolic function. In current clinical context believe this represents progression of his aortic stenosis and he is now in a low flow/low gradient state. The patient has been following with the valve clinic and I have notified them and they are ready taking steps to proceed with TAVR evaluation. Examines euvolemic at this time. No further diuresis necessary at this time. We will continue current doses of metoprolol succinate, simvastatin, terra Zosyn and Lasix. Consideration can be given to decreasing terra Zosyn dose and starting on ARB for afterload reduction, however, given his history of BPH I believe this would be more troublesome than beneficial at this time. (3) ASCVD (arteriosclerotic cardiovascular disease): Stable (4) Essential hypertension: Stable Subjective Patient seen and examined, out of bed in chair. States that he feels well. Has not been ambulating but overall strength seems to have returned. He denies any chest pain, shortness of breath, palpitations, lightheadedness, dizziness or syncope. Telemetry reviewed: Atrial fibrillation rates improved to the 80s and 90s. Review of Systems Review of Systems: All systems reviewed & are unremarkable except as noted in HPI & below Physical Exam Physical Exam: General: Awake, alert and oriented x 3. No acute distress. HEENT: Normocephalic, atraumatic. Pupils equal, round and reactive to light and accommodation. Extraocular muscles are intact. Anicteric sclera. Moist mucous membranes. Neck: No JVD. No bruit. Cardiovascular: irregularly irregular, harsh 4-6 mid-to-late systolic ejection murmur greatest in the right sternal border. Pulmonary: Clear to auscultation bilaterally. No rales, rhonchi, or wheezing. Abdomen: Bowel sounds x 4, soft. No rebound, guarding or tenderness. No organomegaly. Extremities: No clubbing, cyanosis or edema. +2 pedal pulses bilaterally. Skin: Warm and dry. Results & Data Vital Signs (Past 12 Hours) Vital Signs Temp Pulse Pulse Resp BP Pulse Ox 09/03/19 11:29 37.2 C 100 H 18 105/64 100 09/03/19 08:00 103 H 09/03/19 07:41 37.6 C H 85 18 118/76 94 09/03/19 04:14 36.4 C L 91 H 19 96/61 L 92
[2019-09-03 13:51] LABS: Partial Thromboplastin Ratio 1.7; Partial Thromboplastin Time 44.9 Seconds (21.0-31.0)
[2019-09-03] MEDS ORDERED: HEPARIN IV BOLUS 4,000 UNITS in SYRINGE 0 ML IV ONE (14:30)
--- NOTE | 2019-09-03 15:14 | Hospitalist Progress Note ---
Date of Service September 03, 2019 Assessment & Plan (1) Atrial fibrillation: New onset, thought 2/2 valvulopathy. Heparin drip continues with transition to warfarin. Improved rates on beta danny. (2) Aortic stenosis: TAVR workup as outpatient with new reduction in EF. Plans to see CT surgeon at [facility] in 1-2 weeks. (3) ASCVD (arteriosclerotic cardiovascular disease): elevated trop is likely demand ischemia with structural heart disease and increased demand from tachycardia. Cont medical management. (4) Neuropathy: - Continue outpatient gabapentin (5) Hypotension: resolved with improvement in heart rate. (6) DVT prophylaxis: Heparin drip/warfarin Full Code Dispo-uncertain at this time. Per Cardiology recommendations. America Oakes DO [facility] Hospitalist Subjective Pt feels well. Has poor insight into disease process. Continues to say he can breathe well with the oxygen, but is not on oxygen at home. Denies chest pain or malaise. Tolerating PO. Review of Systems Review of Systems: All systems reviewed & are unremarkable except as noted in Subjective Physical Exam Physical Exam: CONSTITUTIONAL: WNWD, vitals as above, generally well- appearing EYES: normal conjunctivae, no scleral icterus ENT: MMM RESPIRATORY: clear to auscultation bilaterally, no crackles, rales or wheezes, normal respiratory effort CARDIOVASCULAR: irregular rate and rhythm, S1 and 2 heard without murmurs, gallops or rubs, no JVD, no peripheral edema GASTROINTESTINAL: soft, nontender, nondistended MUSCULOSKELETAL: strength 5/5 throughout, head is normocephalic and atraumatic SKIN: warm and dry NEUROLOGIC: CN 2-12 grossly intact, normal cognition, normal speech PSYCHIATRIC: alert cooperative and oriented to person, place and time. Results & Data ([facility]) Vital Signs (Past 12 Hours) Vital Signs Temp Pulse Pulse Resp BP Pulse Ox 09/03/19 11:29 37.2 C 100 H 18 105/64 100 09/03/19 08:00 103 H 09/03/19 07:41 37.6 C H 85 18 118/76 94 09/03/19 04:14 36.4 C L 91 H 19 96/61 L 92 Medications Administered Current Inpatient Medications Acetaminophen (Tylenol) 650 mg PO Q4H PRN PRN Reason: Pain or Fever Stop: 09/30/19 14:30 Furosemide (Lasix) 40 mg PO QAM [facility] Stop: 10/01/19 08:59 Last Admin: 09/03/19 07:40 Dose: 40 mg Documented by: Gabapentin (Neurontin) 600 mg PO [facility] Stop: 09/30/19 20:59 Last Admin: 09/02/19 21:02 Dose: 600 mg Documented by: Heparin Sodium/Dextrose (Heparin Sodium/Dextrose) 25,000 units in 500 mls @ 32 mls/hr IV .[id number] [facility]; Protocol Stop: 09/30/19 11:44 Last Titration: 09/03/19 14:00 Dose: 1,600 units/hr, 32 mls/hr Documented by: Ioversol (Optiray 320 125ml) 120 ml IV ONCE PRN PRN Reason: Interaction Checking Stop: 09/04/19 11:59 Last Admin: 08/31/19 12:01 Dose: 120 ml Documented by: Metoprolol Succinate (Toprol Xl) 50 mg PO BID [facility] Stop: 10/02/19 11:54 Last Admin: 09/03/19 07:40 Dose: 50 mg Documented by: Metoprolol Tartrate (Lopressor) 2.5 mg IV Q5M PRN PRN Reason: Tachycardia Stop: 09/30/19 14:30 Nitroglycerin (Nitrostat) 0.4 mg SL UD PRN PRN Reason: Chest Pain Stop: 09/30/19 14:30 Polyethylene Glycol (Miralax Powder Packet) 17 gm PO DAILY [facility] Stop: 10/03/19 08:59 Last Admin: 09/03/19 07:41 Dose: 17 gm Documented by: Senna/Docusate Sodium (Senokot S) 1 tab PO [facility] Stop: 10/02/19 20:34 Last Admin: 09/03/19 07:41 Dose: 1 tab Documented by: Simvastatin (Zocor) 40 mg PO [facility] Stop: 09/30/19 20:59 Last Admin: 09/02/19 21:02 Dose: 40 mg Documented by: Terazosin HCl (Hytrin) 5 mg PO [facility] Stop: 09/30/19 20:59 Last Admin: 09/02/19 21:02 Dose: 5 mg Documented by: Warfarin Sodium (Coumadin) 5 mg PO DAILY@1600 [facility] Stop: 09/30/19 16:29 Last Admin: 09/02/19 15:58 Dose: 5 mg Documented by:
[2019-09-03] MEDS: WARFARIN SOD 5 MG TAB PO SCH (16:13)
[2019-09-03] MEDS ORDERED: GLYCERIN ADULT 12 SUPP/BOX SUPP PR PRN (17:41)
[2019-09-03] MEDS ORDERED: POLYETHYLENE (MIRALAX) 17 GM PACK PO ONE (17:42)
[2019-09-03] MEDS: SIMVASTATIN 40 MG TAB PO SCH (19:41)
[2019-09-03] MEDS: GABAPENTIN 300 MG CAP PO SCH (19:41)
[2019-09-03] MEDS: TERAZOSIN HCL 5 MG CAP PO SCH (19:41)
[2019-09-03 20:54] LABS: Partial Thromboplastin Ratio 2.4
[2019-09-03 20:59] LABS: Partial Thromboplastin Time 64.6 Seconds (21.0-31.0)
[2019-09-04] MEDS: HEPARIN SODIUM/DEXTROSE 25,000 UNITS/500 ML BAG IV SCH (04:42)
[2019-09-04 06:48] LABS: Hematocrit (blood only) 38.2 % (42-52); Hemoglobin 12.2 g/dL (14.0-18.0); Mean Corpuscular Hemoglobin 29.4 pg (25-34); Mean Corpuscular Hgb Conc 31.9 g/dL (32-36); Mean Platelet Volume 11.8 fL (7.4-10.4); Platelet Count 134 K/uL (130-400); RDW Coefficient of Variation 14.3 % (11.5-14.5); RDW Standard Deviation 48.5 fL (36.4-46.3); Red Blood Count 4.15 M/uL (4.7-6.1); White Blood Count 4.46 K/uL (4.8-10.8)
[2019-09-04 07:09] LABS: INR 1.3 (0.9-1.1); Prothrombin Time 12.9 Seconds (9.0-12.0)
[2019-09-04 07:22] LABS: Partial Thromboplastin Time 53.6 Seconds (21.0-31.0)
[2019-09-04 07:25] LABS: BUN Creatinine Ratio 13.1 (10-20); Creatinine Clr Calc Pharmacy 58.5 ml/min; Est GFR (African American) 69.4; Est GFR (Non-African American) 59.9; Potassium 4.1 mmol/L (3.5-5.1)
[2019-09-04] MEDS: POLYETHYLENE (MIRALAX) 17 GM PACK PO SCH (08:12)
[2019-09-04] MEDS: FUROSEMIDE 40 MG TAB PO SCH (08:12)
[2019-09-04] MEDS: METOPROLOL SUCC 50MG EXT REL TAB PO SCH (08:13)
[2019-09-04] MEDS: DOCUSATE SODIUM/SENNA 50/8.6MG TAB PO SCH (08:13)
--- NOTE | 2019-09-04 15:37 | Discharge Summary ---
Date of Service September 04, 2019 Admission HPI Per Admitting Provider 88 y/o male with PMH of aortic stenosis, AAA s/p endovascular repair, HTN, dyslipidemia, and neuropathy who presents with intermittent [place], worsening over past week. Called his PCP about symptoms this morning who referred pt to ED. Reports ongoing issues with mild dyspnea on exertion but worsening over past week, especially on left side "like it was closed" (referring to the lung). Denies chest pain or pressure. No sensation of heart racing or skipping beats, PND, cough, wheezing, orthopnea, N/V. Orthostatic lightheadedness but chronic. Unclear if worsening over past week. On furosemide for peripheral edema - no worse than usual. No recent history of falls - last fall in 2010. Walks unassisted - no cane or walker. Lives alone. No fevers, chills, sweats. Uses unspecified laxative pills which helps constipation. No hematochezia or hematuria. Denies epistaxis, recent cold symptoms, gingival bleeding. Pt was on Coumadin after PE in 2010 after ankle surgery. This was considered a provoked event. Coumadin continued until 2012 when it was stopped due to concern that risks outweighed benefits, specifically since pt lives alone. Principal Diagnosis New onset atrial fibrillation Cardiomyopathy Hypoxia Aortic Stenosis Discharge Data Allergies Allergy/AdvReac Type Severity Reaction Status Date / Time No Known Allergies Allergy Verified 08/31/19 11:56 Consultations 08/31/19 12:37 ED Decision to Admit Stat 08/31/19 12:59 Consult Cardiology Routine Ordered Studies 08/31/19 11:45 CT angio chest PE protocol Stat Hospital Course (1) Atrial fibrillation: New onset, thought 2/2 valvulopathy. Heparin drip continues with transition to warfarin. Improved rates on beta danny. (2) Aortic stenosis: TAVR workup as outpatient with new reduction in EF. Plans to see CT surgeon at [facility] in 1-2 weeks. (3) ASCVD (arteriosclerotic cardiovascular disease): elevated trop is likely demand ischemia with structural heart disease and increased demand from tachycardia. Cont medical management. (4) Neuropathy: - Continue outpatient gabapentin (5) Hypotension: resolved with improvement in heart rate. (6) DVT prophylaxis: Heparin drip/warfarin Full Code Dispo-uncertain at this time. Per Cardiology recommendations. [facility] Discharge Plan Discharge Items Patient Disposition: Home - Self-Care Reason For Visit: ATRIAL FIB WITH RVR Discharge Diagnosis: New onset atrial fibrillation Cardiomyopathy Hypoxia Aortic Stenosis Condition on Discharge: Good Activity: Resume your previous activity Non-emergency contact: Primary Care Provider Call non-emergency contact if: you have any medication questions, your symptoms worsen, your pain is not controlled, your pain is worsening, your pain is unusual for you, your pain is concerning for you and you have a fever Follow-up/Referrals: Reno Blankenship MD [Primary Care Provider] - 09/07/19 2:55 pm Diet: Low Sodium (2gm) Addtl Attending Provider Instructions: Please take all medications as instructed on discharge list below. You will need to establish care with the local [facility]UL[facility] CL[facility]IC to manage your INR ("coumadin level"). Your goal INR is between 2 and 3. YOUR NEXT INR CHECK SHOULD BE NO LATER THAN 09/07/2019 You are being sent home on supplemental oxygen, which is a new thing for you. A supplier should be delivering this to your home today. It is recommended that you follow-up with your primary care provider within one week as stated above. 09/07/2019 3:10 PM Reno Blankenship MD [facility] Please follow-up with Cardiology as instructed to discuss options for valve replacement. It was a pleasure taking care of you! Please call if you have any questions or problems. You can reach a [facility] hospitalist on duty at [facility] 24 hours a day by calling [phone]. Take care of yourself. America Oakes DO [facility] Hospitalist Pending Studies at Discharge: No Stand-Alone Forms: My [facility] [employer], Smoking Cessation Medications and DC Order Prescriptions: New warfarin [Coumadin] 10 mg Tablet 10 mg PO DAILY@1600 Qty: 30 RF: 0 metoprolol succinate 50 mg Tablet Extended Release 24 Hr 50 mg PO BID Qty: 60 RF: 1 Continued furosemide 40 mg tablet 40 mg PO QAM RF: 0 terazosin 5 mg Capsule 5 mg PO HS RF: 0 polyethylene glycol 3350 [Miralax] 17 gram Powder In Packet 17 g PO HS RF: 0 aspirin 81 mg Tablet,Delayed Release (Dr/Ec) 81 mg PO HS RF: 0 simvastatin 40 mg Tablet 40 mg PO HS RF: 0 nitroglycerin [Nitrostat] 0.4 mg Tablet, Sublingual 0.4 mg sublingual UD PRN (Reason: Chest Pain) RF: 0 gabapentin 300 mg capsule 600 mg PO HS RF: 0 Laxative Capsules 1 cap PO BID RF: 0 Discharge Orders: Discharge Order (Routine); Ordered 09/04/19 Ordered By: America Oakes Admission Data Admit Date/Time: 08/31/19 12:39 Attending Provider: America Oakes Admit Provider: Roxanna Barajas I. Primary Care Provider: Reno Blankenship Other Providers: Prince Carrington ; Roxanna Barajas I.
[2019-09-04] MEDS ORDERED: WARFARIN SOD 10 MG TAB PO SCH (16:00)
== END 2019-09-04 17:30 | disposition home or self-care (01) | DRG 309 ==
LOC: ED 10:19 → 2S 12:39 → SUATTDRO 12:39 → 2S 13:45